=== PATIENT | male | born 1980 | race Caucasian/White ===

== ENCOUNTER 2021-09-09 21:37 | Emergency (ER) | payer SELFPAY ==
[~2021-09-09] VITALS: Ht 183 cm; Wt 77.0 kg
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
--- NOTE | 2021-09-09 22:27 | Diagnostic Imaging Report ---
PATIENT HISTORY: Left anterior lower chest pain. TECHNIQUE: Two views of the chest. COMPARISON: None. FINDINGS: The lung volumes are normal. No focal consolidation is seen. No large pleural effusion or pneumothorax is seen. The cardiomediastinal silhouette is normal in size and contour. There appear to be nondisplaced fractures of the left anterior 5th and 6th ribs. IMPRESSION: Fractures of the left anterior 5th and 6th ribs. No acute pulmonary abnormality is seen. Dictated by: Dictated on workstation # [id number]
[2021-09-09] MEDS ORDERED: ACHD5005 PO (22:32)
[2021-09-09 23:05] VITALS: BP 140/77
== END 2021-09-09 23:05 | disposition home or self-care (01) ==
LOC: ER 21:39
DX: R07.81 Pleurodynia (principal); F17.210 Nicotine dependence, cigarettes, uncomplicated
CPT/HCPCS: 71046; 99281

== ENCOUNTER 2021-09-17 08:41 | Emergency (ER) | payer SELFPAY ==
[~2021-09-17] VITALS: Ht 180 cm; Wt 77.0 kg
[~2021-09-17 08:41] MED LIST: ACHD5005 PO
[2021-09-17] MEDS ORDERED: HYDR-3817 PO (09:02)
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
[2021-09-17 09:07] VITALS: BP 169/97
== END 2021-09-17 09:07 | disposition home or self-care (01) ==
LOC: EDUNIT# 08:41 → ER 08:43
DX: R07.81 Pleurodynia (principal); Z72.0 Tobacco use
CPT/HCPCS: 99281

== ENCOUNTER 2023-03-23 11:09 | Emergency (ER) | payer BC ==
[~2023-03-23] VITALS: Ht 182 cm; Wt 75.0 kg
[~2023-03-23 11:09] MED LIST changes: +HYDR-3817 PO
[2023-03-23] MEDS ORDERED: ALPRAZolam 0.5 MG (XANAX) TAB PO STA (11:53)
[2023-03-23] MEDS ORDERED: LACTATED RINGERS 1,000 ML IV ONE (12:00)
[2023-03-23 12:26] VITALS: BP_SYST 129; BP_SYST 133; BP_SYST 137; BP_DIAS 78; BP_DIAS 81; BP_DIAS 89
[2023-03-23 12:30] LABS: BASOPHILS % (AUTO) 0 % (0-10); EOSINOPHILS # (AUTO) 0.1 10^3/uL (0.0-0.3); EOSINOPHILS % (AUTO) 1 % (0-10); HEMATOCRIT 49 % (40-54); HEMOGLOBIN 17.2 g/dL (13.3-17.7); LYMPHOCYTES # (AUTO) 1.4 10^3/uL (1.0-4.0); LYMPHOCYTES % (AUTO) 20 % (12-44); MEAN CORPUSCULAR HEMOGLOBIN 31 pg (25-34); MEAN CORPUSCULAR HGB CONC 35 g/dL (32-36); MEAN CORPUSCULAR VOLUME 89 fL (80-99); MONOCYTES # (AUTO) 0.4 10^3/uL (0.0-1.0); MONOCYTES % (AUTO) 6 % (0-12); NEUTROPHILS # (AUTO) 5.2 10^3/uL (1.8-7.8); NEUTROPHILS % (AUTO) 73 % (42-75); PLATELET COUNT 271 10^3/uL (130-400); WHITE BLOOD COUNT 7.1 10^3/uL (4.3-11.0)
[2023-03-23 12:32] LABS: BILIRUBIN,URINE NEGATIVE (NEGATIVE); CLARITY,URINE CLEAR; COLOR,URINE YELLOW; GLUCOSE, URINE (UA) NEGATIVE (NEGATIVE); KETONES,URINE NEGATIVE (NEGATIVE); LEUKOCYTE ESTERASE ,URINE NEGATIVE (NEGATIVE); NITRITE,URINE NEGATIVE (NEGATIVE); PH,URINE 5.5 (5-9); PROTEIN,URINE NEGATIVE (NEGATIVE)
[2023-03-23 12:40] LABS: BACTERIA,URINE NEGATIVE /HPF
[2023-03-23 12:50] LABS: AMPHETAMINE SCREEN, URINE NEGATIVE (NEGATIVE); BARBITURATE SCREEN URINE NEGATIVE (NEGATIVE); BENZODIAZEPINES SCREEN URINE NEGATIVE (NEGATIVE); CANNABINOID SCREEN, URINE NEGATIVE (NEGATIVE); COCAINE SCREEN URINE NEGATIVE (NEGATIVE); METHADONE STAT NEGATIVE (NEGATIVE); OPIATE SCREEN URINE NEGATIVE (NEGATIVE); OXYCODONE STAT NEGATIVE (NEGATIVE); PROPOXYPHENE STAT NEGATIVE (NEGATIVE); TRICYCLIC ANTIDEPRESSANTS SCRE NEGATIVE (NEGATIVE)
[2023-03-23 12:56] LABS: ALBUMIN 4.3 GM/DL (3.2-4.5); CHLORIDE 105 MMOL/L (98-107); POTASSIUM 4.3 MMOL/L (3.6-5.0); SODIUM 140 MMOL/L (135-145)
[2023-03-23 12:57] LABS: CALCIUM 9.7 MG/DL (8.5-10.1)
[2023-03-23 12:58] LABS: GLUCOSE 96 MG/DL (70-105); TOTAL PROTEIN 7.6 GM/DL (6.4-8.2)
[2023-03-23 13:00] LABS: BILIRUBIN,TOTAL 0.4 MG/DL (0.1-1.0); CARBON DIOXIDE 24 MMOL/L (21-32)
[2023-03-23 13:02] LABS: ALKALINE PHOSPHATASE 126 U/L (40-136); CREATININE SERUM 0.85 MG/DL (0.60-1.30); GFR ESTIMATED 113
[2023-03-23 13:03] LABS: BUN/CREATININE RATIO 12
[2023-03-23 13:05] LABS: ALANINE AMINOTRANSFERASE 64 U/L (0-55); MAGNESIUM 1.6 MG/DL (1.6-2.4)
[2023-03-23 13:26] LABS: FREE T4 (FREE THYROXINE) 0.96 NG/DL (0.70-1.48)
[2023-03-23] MEDS ORDERED: HYDR-700 PO (13:56)
--- NOTE | 2023-03-23 13:56 | ED General ---
General Chief Complaint: Dizziness/Syncope Stated Complaint: ANXIETY/DIZINESS Nursing Triage Note: PT AMB TO [facility], PT STATES WAS IN SHOWER FELT LIKE WAS GONNA PASS OUT AND BECAME SOB. PT DENIES HAVING ANXIETY. PT STATES IS TRYING TO GET OFF [facility]AN[facility]. Source of Information: Patient Exam Limitations: No Limitations History of Present Illness Date Seen by Provider: Mar 23, 2023 Time Seen by Provider: 11:45 Allergies and Home Medications Allergies Coded Allergies: No Known Drug Allergies (Unverified , 09/09/21) Patient Home Medication List Home Medication List Reviewed: Yes Hydrocodone/Acetaminophen (Hydrocodone-Acetamin 5-325 mg) 1 Each Tablet, 1 TAB PO Q4H PRN for PAIN-MODERATE (5-7) Prescribed by: KANIKA ROLAND on 09/09/21 2233 Hydrocodone/Acetaminophen (Hydrocodone-Acetamin 7.5-325) 1 Each Tablet, 1 EACH PO Q6H PRN for PAIN-SEVERE (8-10) Prescribed by: NINO DILLON on 09/17/21 0902 Hydroxyzine HCl (Hydroxyzine HCl) 25 Mg Tablet, 25 MG PO Q6H PRN for ANXIETY Prescribed by: KOBI BARAJAS on 03/23/23 1356 Past Qfylfjh-Tnuzwh-Drixao Hx Patient Social History Tobacco Use?: No Use of E-Cig and/or Vaping dev: Yes E-Cig or Vaping type used: Nicotine Use of E-Cig and/or Vaping Andrew: Current Everyday User Substance use?: Yes Substance type: Other Additional substance use comme: [employer] Substance frequency: Daily Alcohol Use?: Yes Alcohol type: Beer Alcohol Frequency: Several times a month Pt feels they are or have been: No Physical Exam Vital Signs Vital Signs - First Documented 03/23/23 11:15 Temp 36.8 Pulse 90 Resp 18 B/P (MAP) 167/84 (111) Pulse Ox 98 Capillary Refill : Less Than 3 Seconds Height, Weight, BMI Height: '" Weight: lbs. oz. kg; 22.00 BMI Method: Progress/Results/Core Measures Suspected Sepsis SIRS Temperature: Pulse: 100 Respiratory Rate: 18 Laboratory Tests 03/23/23 12:20: White Blood Count 7.1 Blood Pressure 129 /89 Mean: 102 Laboratory Tests 03/23/23 12:20: Creatinine 0.85, Platelet Count 271, Total Bilirubin 0.4 Results/Orders Lab Results Laboratory Tests Test 03/23/23 12:15 03/23/23 12:20 Range/Units Urine Color YELLOW Urine Clarity CLEAR Urine pH 5.5 5-9 Urine Specific [place] <=1.005 1.016-1.022 Urine Protein NEGATIVE NEGATIVE Urine Glucose (UA) NEGATIVE NEGATIVE Urine Ketones NEGATIVE NEGATIVE Urine Nitrite NEGATIVE NEGATIVE Urine Bilirubin NEGATIVE NEGATIVE Urine Urobilinogen 0.2 < = 1.0 MG/DL Urine Leukocyte Esterase NEGATIVE NEGATIVE Urine RBC (Auto) NEGATIVE NEGATIVE Urine RBC NONE /HPF Urine WBC NONE /HPF Urine Crystals NONE /LPF Urine Bacteria NEGATIVE /HPF Urine Casts NONE /LPF Urine Mucus NEGATIVE /LPF Urine Culture Indicated NO Urine Opiates Screen NEGATIVE NEGATIVE Urine Oxycodone Screen NEGATIVE NEGATIVE Urine Methadone Screen NEGATIVE NEGATIVE Urine Propoxyphene Screen NEGATIVE NEGATIVE Urine Barbiturates Screen NEGATIVE NEGATIVE Ur Tricyclic Antidepressants Screen NEGATIVE NEGATIVE Urine Phencyclidine Screen NEGATIVE NEGATIVE Urine Amphetamines Screen NEGATIVE NEGATIVE Urine Methamphetamines Screen NEGATIVE NEGATIVE Urine Benzodiazepines Screen NEGATIVE NEGATIVE Urine Cocaine Screen NEGATIVE NEGATIVE Urine Cannabinoids Screen NEGATIVE NEGATIVE White Blood Count 7.1 4.3-11.0 10^3/uL Red Blood Count 5.52 4.30-5.52 10^6/uL Hemoglobin 17.2 13.3-17.7 g/dL Hematocrit 49 40-54 % Mean Corpuscular Volume 89 80-99 fL Mean Corpuscular Hemoglobin 31 25-34 pg Mean Corpuscular Hemoglobin Concent 35 32-36 g/dL Red Cell Distribution Width 12.1 10.0-14.5 % Platelet Count 271 130-400 10^3/uL Mean Platelet Volume 9.0 9.0-12.2 fL Immature Granulocyte % (Auto) 0 % Neutrophils (%) (Auto) 73 42-75 % Lymphocytes (%) (Auto) 20 12-44 % Monocytes (%) (Auto) 6 0-12 % Eosinophils (%) (Auto) 1 0-10 % Basophils (%) (Auto) 0 0-10 % Neutrophils # (Auto) 5.2 1.8-7.8 10^3/uL Lymphocytes # (Auto) 1.4 1.0-4.0 10^3/uL Monocytes # (Auto) 0.4 0.0-1.0 10^3/uL Eosinophils # (Auto) 0.1 0.0-0.3 10^3/uL Basophils # (Auto) 0.0 0.0-0.1 10^3/uL Immature Granulocyte # (Auto) 0.0 0.0-0.1 10^3/uL D-Dimer < 0.27 0.00-0.49 UG/ML Sodium Level 140 135-145 MMOL/L Potassium Level 4.3 3.6-5.0 MMOL/L Chloride Level 105 98-107 MMOL/L Carbon Dioxide Level 24 21-32 MMOL/L Anion Gap 11 5-14 MMOL/L Blood Urea Nitrogen 10 7-18 MG/DL Creatinine 0.85 0.60-1.30 MG/DL Estimat Glomerular Filtration Rate 113 BUN/Creatinine Ratio 12 Glucose Level 96 70-105 MG/DL Calcium Level 9.7 8.5-10.1 MG/DL Corrected Calcium 9.5 8.5-10.1 MG/DL Magnesium Level 1.6 1.6-2.4 MG/DL Total Bilirubin 0.4 0.1-1.0 MG/DL Aspartate Amino Transf (AST/SGOT) 28 5-34 U/L Alanine Aminotransferase (ALT/SGPT) 64 H 0-55 U/L Alkaline Phosphatase 126 40-136 U/L Troponin I < 0.028 <0.028 NG/ML Total Protein 7.6 6.4-8.2 GM/DL Albumin 4.3 3.2-4.5 GM/DL Thyroid Stimulating Hormone (TSH) 1.86 0.35-4.94 UIU/ML Free Thyroxine 0.96 0.70-1.48 NG/DL Serum Alcohol < 10 <10 MG/DL My Orders Orders - KOBI ANDERSON MD Ekg Tracing (03/23/23 11:45) Monitor-Rhythm Ecg Trace Only (03/23/23 11:45) Alcohol (03/23/23 11:53) Cbc With Automated Diff (03/23/23 11:53) Comprehensive Metabolic Panel (03/23/23 11:53) Fibrin Degradation Products (03/23/23 11:53) Drug Screen Stat (Urine) (03/23/23 11:53) Magnesium (03/23/23 11:53) Thyroid Stimulating Hormone (03/23/23 11:53) Troponin I Fawn (03/23/23 11:53) Ua Culture If Indicated (03/23/23 11:53) Free T4 (Free Thyroxine) (03/23/23 11:53) Orthostatic Vital Signs (Adult (03/23/23 11:53) Alprazolam Tablet (Xanax Tablet) (03/23/23 11:53) Orthostatic Vital Signs (Adult (03/23/23 11:53) Lactated Ringers (Lr 1000 Ml Iv Solution (03/23/23 12:00) Medications Given in ED Current Medications Medications Dose Ordered Sig/Beni Route Start Time Stop Time Status Last Admin Dose Admin Lactated Ringer's 1,000 ml @ 0 mls/hr Q0M ONCE IV 03/23/23 12:00 03/23/23 12:01 DC 03/23/23 12:34 1,000 MLS/HR Vital Signs/I&O 03/23/23 03/23/23 03/23/23 11:15 12:26 14:03 Temp 36.8 Pulse 90 87 90 95 100 Resp 18 18 B/P (MAP) 167/84 (111) 137/78 (97) 131/80 133/81 (98) 129/89 (102) Pulse Ox 98 99 Capillary Refill : Less Than 3 Seconds Blood Pressure Mean: 102 ECG Initial ECG Impression Date: Mar 23, 2023 Initial ECG Impression Time: 12:20 Initial ECG Rate: 80 Initial ECG Rhythm: Normal Sinus Initial ECG Intervals: Normal Initial ECG Impression: Normal Comment Normal sinus rhythm with no ST elevation or depression. No abnormal intervals or axis deviation Departure Impression Primary Impression: Anxiety Additional Impressions: Lightheadedness Shortness of breath Disposition: 01 HOME, SELF-CARE Condition: Improved Departure-Patient Inst. Decision time for Depature: 13:54 Referrals: NO,LOCAL PHYSICIAN (PCP/Family) Primary Care Physician Patient Instructions: Anxiety, Adult ED Add. Discharge Instructions: You may use hydroxyzine as prescribed for her anxiety. Hydroxyzine may cause drowsiness so use with caution. You should not drive, operate machinery, or make important decisions after you have taken this medicine. Establish with a primary care provider and a behavioral health provider for further evaluation and treatment. Return to the emergency room if you have worsening symptoms despite following these instructions. All discharge instructions reviewed with patient and/or family. Voiced understanding. Scripts Hydroxyzine HCl (Hydroxyzine HCl) 25 Mg Tablet 25 MG PO Q6H PRN for ANXIETY, #10 TAB Prov: KOBI ANDERSON MD 03/23/23 KOBI ANDERSON MD Mar 23, 2023 13:56
[2023-03-23 14:03] VITALS: BP 131/80
== END 2023-03-23 14:06 | disposition home or self-care (01) ==
LOC: EDUNIT# 11:09 → ER 11:12
DX: F41.9 Anxiety disorder, unspecified (principal); R42 Dizziness and giddiness; R06.02 Shortness of breath; F17.290 Nicotine dependence, other tobacco product, uncomplicated
CPT/HCPCS: 36415; 80053; 80306; 80320; 81000; 83735; 84439; 84443; 84484; 85025; 85379; 93005; 93041